=== PATIENT | male | born 1970 | race Caucasian/White ===

== ENCOUNTER 2019-06-11 13:25 | Observation (INO) ==
[2019-06-11 13:45] LABS: Basophils # 0.1 10*3/uL (0.0-0.2); Basophils % 0.6 % (0.0-0.8); Eosinophils # 0.3 10*3/uL (0.0-0.87); Eosinophils % 3.1 % (0.00-10.9); Hematocrit 45.6 VOL% (42.0-52.0); Hemoglobin 15.2 GM/DL (14.0-18.0); Immature Granulocytes % 0.5 %; Immature Granulocytes Absolute 0.04 #; Lymphocytes # 1.8 10*3/uL (1.4-4.0); Lymphocytes % 21.9 % (21.2-54.2); Mean Corpuscular HGB Conc 33.3 GM/DL (32-36); Mean Corpuscular Volume 80.3 FL (87-102); Mean Platelet Volume 12.4 FL (9.6-12.0); Monocytes % 8.9 % (1.7-12.7); Platelet Count 159 T/CUMM (130-400); Red Blood Count 5.68 MC/CUMM (3.8-5.5)
[2019-06-11] MEDS ORDERED: ENOXAPARIN 30 MG/0.3 ML SYRINGE SUBCUT STA (13:47)
[2019-06-11] MEDS ORDERED: ENOXAPARIN 100 MG/ML SYRINGE SUBCUT STA (13:52)
[2019-06-11 14:04] LABS: Albumin 3.6 G/DL (3.4-5.0); Bilirubin,Total 0.4 MG/DL (0.2-1.0); Calcium 8.4 MG/DL (8.5-10.1); Osmolality,Calculated 279.5 MOS/KG (273-304); Total Protein 7.1 G/DL (6.4-8.3)
[2019-06-11] MEDS ORDERED: ONDANSETRON 4 MG/2 ML VIAL ONE (14:24)
[2019-06-11] MEDS ORDERED: ONDANSETRON 4 MG/2 ML VIAL IV STA (14:28)
[2019-06-11] MEDS ORDERED: BISACODYL 5 MG TABLET PO PRN (15:57)
[2019-06-11] MEDS ORDERED: ZALEPLON 5 MG CAPSULE PO PRN (15:57)
[2019-06-11] MEDS ORDERED: diphenhydrAMINE CAP 25 MG CAPSULE PO PRN (15:57)
[2019-06-11] MEDS ORDERED: POTASSIUM CHLORIDE 20 MEQ TABLET PO PRN (15:57)
[2019-06-11] MEDS ORDERED: MAGNESIUM SULF RIDER 4 GM in PREMIX 1 EACH IV PRN (15:57)
[2019-06-11] MEDS ORDERED: ONDANSETRON 4 MG/2 ML VIAL IV PRN (15:57)
[2019-06-11] MEDS ORDERED: LACTULOSE 20 GM/30 ML UDCUP PO PRN (15:57)
[2019-06-11] MEDS ORDERED: MAGNESIUM SULF RIDER 2 GM in PREMIX 1 EACH IV PRN (15:57)
[2019-06-11] MEDS ORDERED: ACETAMINOPHEN 325 MG TABLET PO PRN (15:57)
[2019-06-11] MEDS ORDERED: guaiFENesin/DM ER 600-30 MG TABLET PO PRN (15:57)
[2019-06-11] MEDS ORDERED: MORPHINE 4 MG/1 ML VIAL IV PRN (15:57)
[2019-06-11 16:38] LABS: Troponin I < 0.015 NG/ML (0.00-0.045)
[2019-06-11] MEDS ORDERED: DEXTROSE 50% 25 GM/50 ML VIAL IV PRN (16:40)
[2019-06-11] MEDS ORDERED: GLUCAGON 1 MG VIAL IM PRN (16:40)
[2019-06-11 19:50] LABS: Troponin I < 0.015 NG/ML (0.00-0.045)
[2019-06-11] MEDS: carvediloL 6.25 MG TABLET PO SCH (20:28)
[2019-06-11] MEDS: INSULIN LISPRO 100 UNIT/ML SUBCUT SCH (20:30)
[2019-06-11] MEDS ORDERED: CETIRIZINE 10 MG TABLET PO SCH (21:00)
[2019-06-11] MEDS ORDERED: ATORVASTATIN 40 MG TABLET PO SCH (21:00)
[2019-06-11 22:00] LABS: Troponin I < 0.015 NG/ML (0.00-0.045)
[2019-06-12] MEDS ORDERED: ENOXAPARIN 100 MG/ML SYRINGE SUBCUT SCH (01:00)
[2019-06-12 04:53] LABS: Basophils # 0.1 10*3/uL (0.0-0.2); Basophils % 0.6 % (0.0-0.8); Eosinophils # 0.3 10*3/uL (0.0-0.87); Eosinophils % 4.1 % (0.00-10.9); Hematocrit 47.7 VOL% (42.0-52.0); Hemoglobin 15.7 GM/DL (14.0-18.0); Immature Granulocytes % 0.3 %; Immature Granulocytes Absolute 0.02 #; Lymphocytes # 2.7 10*3/uL (1.4-4.0); Lymphocytes % 34.4 % (21.2-54.2); Mean Corpuscular HGB Conc 32.9 GM/DL (32-36); Mean Corpuscular Volume 80.8 FL (87-102); Mean Platelet Volume 12.8 FL (9.6-12.0); Neutrophils % 52.6 % (38.7-73.9); Platelet Count 147 T/CUMM (130-400); Red Cell Distribution Width 13.1 % (9.3-17.3); White Blood Count 7.9 T/CUMM (4-12)
[2019-06-12 05:25] LABS: Calcium 8.7 MG/DL (8.5-10.1); Osmolality,Calculated 277.7 MOS/KG (273-304); Risk Ratio 3.6; Thyroid Stimulating Hormone 1.48 uIU/ml (0.358-3.74)
[2019-06-12 07:43] VITALS: BP 119/73
[2019-06-12] MEDS: INSULIN LISPRO 100 UNIT/ML SUBCUT SCH (08:28)
[2019-06-12] MEDS ORDERED: ASPIRIN EC 81 MG TABLET PO SCH (09:00)
[2019-06-12] MEDS ORDERED: PANTOPRAZOLE 40 MG TABLET PO SCH (09:00)
[2019-06-12] MEDS ORDERED: SERTRALINE 100 MG TABLET PO SCH (09:00)
[2019-06-12] MEDS ORDERED: PRASUGREL 10 MG TABLET PO SCH (09:00)
[2019-06-12] MEDS ORDERED: INSULIN NPH/REGULAR 70/30 100 UNIT/ML SUBCUT SCH (09:00)
[2019-06-12] MEDS ORDERED: OLMESARTAN 5 MG TABLET PO SCH (09:00)
[2019-06-12] MEDS ORDERED: ISOSORBIDE MONONITRATE 30 MG TABLET PO SCH (09:00)
[2019-06-12] MEDS: carvediloL 6.25 MG TABLET PO SCH (09:19)
[2019-06-12] MEDS ORDERED: INSULIN GLARGINE 100 UNIT/ML SUBCUT SCH (21:00)
== END 2019-06-12 10:38 | disposition home or self-care (01) ==
LOC: N.ED 13:25 → N.EDINP 13:25 → N.TELES 16:55
PROVIDERS: ADMIT Internal Medicine Cardiovascular Disease; ATTEND Internal Medicine Cardiovascular Disease

== ENCOUNTER 2020-09-21 11:19 | Observation (INO) ==
[2020-09-21 11:37] LABS: Basophils % 0.6 % (0.0-0.8); Eosinophils # 0.1 10*3/uL (0.0-0.87); Hematocrit 44.4 VOL% (42.0-52.0); Hemoglobin 15.1 GM/DL (14.0-18.0); Immature Granulocytes % 0.6 %; Immature Granulocytes Absolute 0.04 #; Lymphocytes # 1.2 10*3/uL (1.4-4.0); Lymphocytes % 17.3 % (21.2-54.2); Mean Corpuscular Volume 84.4 FL (87-102); Mean Platelet Volume 12.5 FL (9.6-12.0); Monocytes % 6.5 % (1.7-12.7); Platelet Count 141 T/CUMM (130-400); Red Blood Count 5.26 MC/CUMM (3.8-5.5); Red Cell Distribution Width 12.9 % (9.3-17.3); White Blood Count 6.9 T/CUMM (4-12)
[2020-09-21 12:01] LABS: Albumin 3.4 G/DL (3.4-5.0); Bilirubin,Total 0.5 MG/DL (0.2-1.0); Calcium 8.7 MG/DL (8.5-10.1); Osmolality,Calculated 287.2 MOS/KG (273-304); Potassium 4.5 MMOL/L (3.5-5.1); Total Protein 6.7 G/DL (6.4-8.2)
[2020-09-21] MEDS ORDERED: ASPIRIN CHEW 81 MG TABLET PO STA (12:12)
[2020-09-21] MEDS ORDERED: ENOXAPARIN 100 MG/ML SYRINGE SUBCUT STA (12:12)
[2020-09-21] MEDS ORDERED: NITROGLYCERIN 2% OINT 1 INCH/GM PACK TOP STA (12:12)
[2020-09-21] MEDS ORDERED: ASPIRIN 325 MG TABLET ONE (12:25)
[2020-09-21] MEDS ORDERED: ACETAMINOPHEN 500 MG TABLET ONE (13:28)
[2020-09-21] MEDS ORDERED: ACETAMINOPHEN 500 MG TABLET PO STA (13:31)
[2020-09-21 15:33] LABS: Thyroid Stimulating Hormone 0.881 uIU/ml (0.358-3.74)
[2020-09-21] MEDS ORDERED: MAGNESIUM SULF RIDER 4 GM in PREMIX 1 EACH IV PRN (15:37)
[2020-09-21] MEDS ORDERED: MAGNESIUM SULF RIDER 2 GM in PREMIX 1 EACH IV PRN ×2 (15:37→15:40)
[2020-09-21] MEDS ORDERED: ACETAMINOPHEN 325 MG TABLET PO PRN (15:39)
[2020-09-21] MEDS ORDERED: MORPHINE 4 MG/1 ML VIAL IV PRN (15:39)
[2020-09-21] MEDS ORDERED: ONDANSETRON 4 MG/2 ML VIAL IV PRN (15:39)
[2020-09-21] MEDS ORDERED: diphenhydrAMINE CAP 25 MG CAPSULE PO PRN (15:39)
[2020-09-21] MEDS ORDERED: POTASSIUM CHLORIDE RIDER 10 MEQ in PREMIX 1 EACH IV PRN (15:40)
[2020-09-21] MEDS ORDERED: SERTRALINE 100 MG TABLET PO ONE (15:44)
[2020-09-21] MEDS ORDERED: clonazePAM 0.5 MG TABLET PO ONE (15:45)
[2020-09-21] MEDS ORDERED: MAGNESIUM HYDROXIDE SUSP 30 ML UDCUP PO PRN (15:46)
[2020-09-21] MEDS ORDERED: GLUCAGON 1 MG VIAL IM PRN (16:36)
[2020-09-21] MEDS ORDERED: DEXTROSE 50% 25 GM/50 ML VIAL IV PRN (16:36)
[2020-09-21] MEDS: INSULIN NPH/REGULAR 70/30 100 UNIT/ML SUBCUT SCH (18:12)
[2020-09-21] MEDS: NITROGLYCERIN 2% OINT 1 INCH/GM PACK TOP SCH ×2 (18:23→23:50)
[2020-09-21] MEDS: carvediloL 6.25 MG TABLET PO SCH (18:23)
[2020-09-21] MEDS: ZALEPLON 5 MG CAPSULE PO PRN (20:47)
[2020-09-21] MEDS: clonazePAM 0.5 MG TABLET PO SCH (20:48)
[2020-09-21] MEDS: INSULIN GLARGINE 100 UNIT/ML SUBCUT SCH (20:48)
[2020-09-21] MEDS: GABAPENTIN 300 MG CAPSULE PO SCH (20:48)
[2020-09-21] MEDS: INSULIN REGULAR 100 UNIT/ML SUBCUT SCH (20:49)
[2020-09-22] MEDS ORDERED: ENOXAPARIN 100 MG/ML SYRINGE SUBCUT ONE (02:00)
[2020-09-22 05:11] LABS: Basophils % 0.3 % (0.0-0.8); Eosinophils # 0.2 10*3/uL (0.0-0.87); Eosinophils % 2.6 % (0.00-10.9); Hematocrit 43.5 VOL% (42.0-52.0); Hemoglobin 14.8 GM/DL (14.0-18.0); Immature Granulocytes % 0.3 %; Immature Granulocytes Absolute 0.02 #; Lymphocytes # 1.9 10*3/uL (1.4-4.0); Mean Corpuscular Volume 84.6 FL (87-102); Mean Platelet Volume 12.7 FL (9.6-12.0); Monocytes % 9.1 % (1.7-12.7); Neutrophils % 56.7 % (38.7-73.9); Platelet Count 145 T/CUMM (130-400); Red Blood Count 5.14 MC/CUMM (3.8-5.5); Red Cell Distribution Width 12.8 % (9.3-17.3); White Blood Count 6.1 T/CUMM (4-12)
[2020-09-22 05:34] LABS: Albumin 3.1 G/DL (3.4-5.0); Bilirubin,Total 0.5 MG/DL (0.2-1.0); Calcium 8.4 MG/DL (8.5-10.1); Potassium 3.7 MMOL/L (3.5-5.1); Risk Ratio 5.03; Total Protein 6.4 G/DL (6.4-8.2); VLDL CHOLESTEROL 107.6 MG/DL
[2020-09-22] MEDS: NITROGLYCERIN 2% OINT 1 INCH/GM PACK TOP SCH ×3 (05:54→17:19)
[2020-09-22] MEDS: INSULIN REGULAR 100 UNIT/ML SUBCUT SCH ×4 (08:20→20:33)
[2020-09-22] MEDS: OLMESARTAN 5 MG TABLET PO SCH (08:52)
[2020-09-22] MEDS: carvediloL 6.25 MG TABLET PO SCH ×2 (08:52→17:19)
[2020-09-22] MEDS: SODIUM CHLORIDE 0.45% 1,000 ML IV SCH ×2 (08:52→16:44)
[2020-09-22] MEDS: ASPIRIN EC 81 MG TABLET PO SCH (08:52)
[2020-09-22] MEDS: INSULIN NPH/REGULAR 70/30 100 UNIT/ML SUBCUT SCH ×2 (08:52→16:44)
[2020-09-22] MEDS: PRASUGREL 10 MG TABLET PO SCH (08:53)
[2020-09-22] MEDS: GABAPENTIN 300 MG CAPSULE PO SCH ×2 (09:07→20:31)
[2020-09-22] MEDS: PANTOPRAZOLE 40 MG TABLET PO SCH (09:07)
[2020-09-22] MEDS: MELOXICAM 7.5 MG TABLET PO SCH (09:07)
[2020-09-22] MEDS: clonazePAM 0.5 MG TABLET PO SCH ×2 (09:07→20:32)
[2020-09-22] MEDS: CHOLECALCIFEROL 5,000 UNIT TABLET PO SCH (09:07)
[2020-09-22] MEDS: ROSUVASTATIN 20 MG TABLET PO SCH (09:07)
[2020-09-22] MEDS: SERTRALINE 100 MG TABLET PO SCH (09:07)
[2020-09-22] MEDS ORDERED: diphenhydrAMINE CAP 50 MG CAPSULE PO ONE (13:30)
[2020-09-22] MEDS ORDERED: DIAZEPAM 5 MG TABLET PO ONE (13:30)
[2020-09-22] MEDS ORDERED: LIDOCAINE 1% 20 ML VIAL ONE (14:43)
[2020-09-22] MEDS ORDERED: NITROGLYCERIN DRIP 50 MG/250 ML BOTTLE IV ONE (14:44)
[2020-09-22] MEDS ORDERED: VERAPAMIL 5 MG/2 ML VIAL ONE (14:44)
[2020-09-22] MEDS ORDERED: HYDROmorphone 2 MG/1 ML VIAL ONE (14:44)
[2020-09-22] MEDS ORDERED: MIDAZOLAM 2 MG/2 ML VIAL ONE (14:44)
[2020-09-22] MEDS ORDERED: ENOXAPARIN 60 MG/0.6 ML SYRINGE ONE (15:04)
[2020-09-22] MEDS ORDERED: ENOXAPARIN 30 MG/0.3 ML SYRINGE ONE (15:25)
[2020-09-22] MEDS ORDERED: PRASUGREL 10 MG TABLET ONE (15:35)
[2020-09-22 17:26] LABS: Troponin I < 0.015 NG/ML (0.00-0.045)
[2020-09-22] MEDS: INSULIN GLARGINE 100 UNIT/ML SUBCUT SCH (20:32)
[2020-09-22] MEDS ORDERED: OMEGA 3 ACID ETHYL ESTERS 1 GM CAPSULE PO SCH (21:00)
[2020-09-22] MEDS: ZALEPLON 5 MG CAPSULE PO PRN (22:01)
[2020-09-22 23:07] VITALS: BP 128/72
[2020-09-23] MEDS: NITROGLYCERIN 2% OINT 1 INCH/GM PACK TOP SCH ×2 (01:04→05:27)
[2020-09-23 05:39] LABS: Basophils % 0.6 % (0.0-0.8); Eosinophils # 0.2 10*3/uL (0.0-0.87); Eosinophils % 3.4 % (0.00-10.9); Hematocrit 43.7 VOL% (42.0-52.0); Hemoglobin 14.5 GM/DL (14.0-18.0); Immature Granulocytes % 0.3 %; Immature Granulocytes Absolute 0.02 #; Lymphocytes # 1.4 10*3/uL (1.4-4.0); Lymphocytes % 23.1 % (21.2-54.2); Mean Corpuscular HGB Conc 33.2 GM/DL (32-36); Mean Corpuscular Volume 85.9 FL (87-102); Mean Platelet Volume 12.7 FL (9.6-12.0); Monocytes % 9.4 % (1.7-12.7); Neutrophils % 63.2 % (38.7-73.9); Platelet Count 136 T/CUMM (130-400); Red Blood Count 5.09 MC/CUMM (3.8-5.5); Red Cell Distribution Width 12.9 % (9.3-17.3); White Blood Count 6.2 T/CUMM (4-12)
[2020-09-23 05:47] LABS: Calcium 8.2 MG/DL (8.5-10.1); Osmolality,Calculated 281.7 MOS/KG (273-304); Potassium 3.5 MMOL/L (3.5-5.1)
[2020-09-23 05:53] LABS: Blood Urea Nitrogen 11 MG/DL (7-18); Calcium 8.2 MG/DL (8.5-10.1); Carbon Dioxide 20 MMOL/L (21-32); Estimated Glom Filtration Rate 132 ML/MIN; Glucose 240 MG/DL (74-106); Osmolality,Calculated 279.8 MOS/KG (273-304); Potassium 3.5 MMOL/L (3.5-5.1); Sodium 137 MMOL/L (136-145); Troponin I < 0.015 NG/ML (0.00-0.045)
[2020-09-23] MEDS: INSULIN REGULAR 100 UNIT/ML SUBCUT SCH (09:19)
[2020-09-23] MEDS: CHOLECALCIFEROL 5,000 UNIT TABLET PO SCH (09:38)
[2020-09-23] MEDS: OLMESARTAN 5 MG TABLET PO SCH (09:38)
[2020-09-23] MEDS: PRASUGREL 10 MG TABLET PO SCH (09:38)
[2020-09-23] MEDS: ROSUVASTATIN 20 MG TABLET PO SCH (09:38)
[2020-09-23] MEDS: MELOXICAM 7.5 MG TABLET PO SCH (09:38)
[2020-09-23] MEDS: SERTRALINE 100 MG TABLET PO SCH (09:38)
[2020-09-23] MEDS: GABAPENTIN 300 MG CAPSULE PO SCH (09:38)
[2020-09-23] MEDS: carvediloL 6.25 MG TABLET PO SCH (09:38)
[2020-09-23] MEDS: clonazePAM 0.5 MG TABLET PO SCH (09:39)
[2020-09-23] MEDS: ASPIRIN EC 81 MG TABLET PO SCH (09:39)
[2020-09-23] MEDS: INSULIN NPH/REGULAR 70/30 100 UNIT/ML SUBCUT SCH (09:39)
[2020-09-23] MEDS: PANTOPRAZOLE 40 MG TABLET PO SCH (09:40)
== END 2020-09-23 13:55 | disposition home or self-care (01) ==
LOC: N.ED 11:19 → N.EDINP 11:19 → N.TELES 16:45
PROVIDERS: ADMIT Internal Medicine Cardiovascular Disease; ATTEND Internal Medicine Cardiovascular Disease
PROC: CLCCHCL (ICD-10-PCS; 2020-09-22 14:45)

== ENCOUNTER 2020-10-06 07:20 | Observation (INO) ==
[2020-10-06] MEDS ORDERED: NITROGLYCERIN 2% OINT 1 INCH/GM PACK TOP STA (07:50)
[2020-10-06] MEDS ORDERED: ALUM/MAG/SIMETH/LIDO VISC 1:1 30 ML BOTTLE PO STA (07:50)
[2020-10-06] MEDS ORDERED: ASPIRIN 325 MG TABLET PO STA (07:50)
[2020-10-06 07:57] LABS: Basophils # 0.1 10*3/uL (0.0-0.2); Basophils % 1.1 % (0.0-0.8); Eosinophils # 0.2 10*3/uL (0.0-0.87); Eosinophils % 2.6 % (0.00-10.9); Hematocrit 46.6 VOL% (42.0-52.0); Hemoglobin 15.6 GM/DL (14.0-18.0); Immature Granulocytes % 0.6 %; Immature Granulocytes Absolute 0.04 #; Lymphocytes # 1.5 10*3/uL (1.4-4.0); Lymphocytes % 24.6 % (21.2-54.2); Mean Corpuscular HGB Conc 33.5 GM/DL (32-36); Mean Corpuscular Volume 84.3 FL (87-102); Mean Platelet Volume 12.1 FL (9.6-12.0); Neutrophils % 56.1 % (38.7-73.9); Platelet Count 141 T/CUMM (130-400); Red Blood Count 5.53 MC/CUMM (3.8-5.5); Red Cell Distribution Width 12.7 % (9.3-17.3); White Blood Count 6.2 T/CUMM (4-12)
[2020-10-06 08:20] LABS: Atypical Lymphocytes Few; Band Neutrophils 2 % (0-10); Eosinophils 1 % (0-10); Lymphocytes 30 % (20-55); Platelet Estimate Adequate; Segmented Neutrophils 56 % (50-85); Total Cells Counted 100
[2020-10-06 08:21] LABS: Bilirubin,Urine Negative (Negative); Blood, Urine Moderate mg/dL (Negative); Glucose,Urine (UA) >=500 mg/dL (Negative); Ketones,Urine Negative (Negative); Mucus,Urine Occasional /LPF (Occasional); Nitrite,Urine Negative (Negative); Protein,Urine Negative; RBC,Urine 5 /HPF (0-4); Urine Appearance CLEAR (Clear); Urine Color Yellow (Yellow); Urine Specific Gravity 1.016 (1.001-1.035); Urine Urobilinogen < 2.0 EU/DL (0.2-1.0); WBC,Urine 1 /HPF (0-6)
[2020-10-06 08:24] LABS: Albumin 3.7 G/DL (3.4-5.0); Bilirubin,Total 0.4 MG/DL (0.2-1.0); Calcium 8.8 MG/DL (8.5-10.1); Osmolality,Calculated 282.1 MOS/KG (273-304); Potassium 4.2 MMOL/L (3.5-5.1); Total Protein 7.1 G/DL (6.4-8.2)
[2020-10-06] MEDS ORDERED: ONDANSETRON 4 MG/2 ML VIAL ONE (09:40)
[2020-10-06] MEDS ORDERED: ONDANSETRON 4 MG/2 ML VIAL IV STA (09:44)
[2020-10-06 10:26] LABS: Barbiturates Screen,Urine Negative (Negative); Benzodiazepines Screen,Urine Negative (Negative); Cannabinoid Screen,Urine Negative (Negative); Opiate Screen,Urine Negative (Negative); Phencyclidine Screen,Urine Negative (Negative)
[2020-10-06] MEDS ORDERED: MORPHINE 4 MG/1 ML VIAL IV STA (11:20)
[2020-10-06] MEDS ORDERED: ENOXAPARIN 100 MG/ML SYRINGE SUBCUT ONE (12:45)
[2020-10-06] MEDS ORDERED: GLUCAGON 1 MG VIAL IM PRN (14:35)
[2020-10-06] MEDS ORDERED: DEXTROSE 50% 25 GM/50 ML VIAL IV PRN (14:35)
[2020-10-06] MEDS ORDERED: ALPRAZolam 0.25 MG TABLET PO PRN (14:42)
[2020-10-06] MEDS ORDERED: ALPRAZolam 0.25 MG TABLET PO ONE (14:43)
[2020-10-06] MEDS ORDERED: PNEUMOCOCCAL VACCINE (13 VALENT) 0.5 ML SYRINGE IM ONE (15:00)
[2020-10-06] MEDS: RANOLAZINE 500 MG TABLET PO SCH ×2 (15:56→21:26)
[2020-10-06] MEDS: INSULIN REGULAR 100 UNIT/ML SUBCUT SCH ×2 (15:57→21:33)
[2020-10-06] MEDS: INSULIN NPH/REGULAR 70/30 100 UNIT/ML SUBCUT SCH (17:52)
[2020-10-06] MEDS ORDERED: FUROSEMIDE 20 MG/2 ML VIAL IV ONE (19:30)
[2020-10-06] MEDS ORDERED: SERTRALINE 100 MG TABLET PO SCH (21:00)
[2020-10-06] MEDS ORDERED: INSULIN GLARGINE 100 UNIT/ML SUBCUT SCH (21:00)
[2020-10-06] MEDS: carvediloL 6.25 MG TABLET PO SCH (21:26)
[2020-10-06] MEDS: GABAPENTIN 300 MG CAPSULE PO SCH (21:26)
[2020-10-07] MEDS ORDERED: ACETAMINOPHEN 325 MG TABLET PO PRN (03:59)
[2020-10-07 05:23] LABS: Basophils # 0.1 10*3/uL (0.0-0.2); Eosinophils # 0.1 10*3/uL (0.0-0.87); Eosinophils % 1.7 % (0.00-10.9); Hematocrit 45.9 VOL% (42.0-52.0); Hemoglobin 15.5 GM/DL (14.0-18.0); Immature Granulocytes % 0.4 %; Immature Granulocytes Absolute 0.03 #; Lymphocytes # 1.7 10*3/uL (1.4-4.0); Lymphocytes % 23.1 % (21.2-54.2); Mean Corpuscular HGB Conc 33.8 GM/DL (32-36); Mean Corpuscular Volume 84.1 FL (87-102); Mean Platelet Volume 12.3 FL (9.6-12.0); Monocytes % 14.2 % (1.7-12.7); Neutrophils % 59.6 % (38.7-73.9); Platelet Count 124 T/CUMM (130-400); Red Blood Count 5.46 MC/CUMM (3.8-5.5); Red Cell Distribution Width 12.8 % (9.3-17.3); White Blood Count 7.3 T/CUMM (4-12)
[2020-10-07 05:47] LABS: Calcium 8.6 MG/DL (8.5-10.1); Osmolality,Calculated 270.2 MOS/KG (273-304); Potassium 3.4 MMOL/L (3.5-5.1)
[2020-10-07 05:48] LABS: Band Neutrophils 1 % (0-10); Eosinophils 4 % (0-10); Lymphocytes 22 % (20-55); Segmented Neutrophils 61 % (50-85); Total Cells Counted 100
[2020-10-07 05:49] LABS: Atypical Lymphocytes Few; Microcytosis 1+; Platelet Estimate Adequate
[2020-10-07 08:19] VITALS: BP 102/56
[2020-10-07] MEDS: GABAPENTIN 300 MG CAPSULE PO SCH (08:42)
[2020-10-07] MEDS: RANOLAZINE 500 MG TABLET PO SCH (08:42)
[2020-10-07] MEDS: carvediloL 6.25 MG TABLET PO SCH (08:42)
[2020-10-07] MEDS: INSULIN REGULAR 100 UNIT/ML SUBCUT SCH (08:45)
[2020-10-07] MEDS: INSULIN NPH/REGULAR 70/30 100 UNIT/ML SUBCUT SCH (08:45)
[2020-10-07] MEDS ORDERED: SERTRALINE 100 MG TABLET PO SCH ×2 (09:00)
[2020-10-07] MEDS ORDERED: ASPIRIN EC 81 MG TABLET PO SCH (09:00)
[2020-10-07] MEDS ORDERED: ROSUVASTATIN 20 MG TABLET PO SCH (09:00)
[2020-10-07] MEDS ORDERED: PRASUGREL 10 MG TABLET PO SCH (09:00)
[2020-10-07] MEDS ORDERED: OLMESARTAN 5 MG TABLET PO SCH (09:00)
[2020-10-07] MEDS ORDERED: MELOXICAM 7.5 MG TABLET PO SCH (09:00)
[2020-10-09] MEDS ORDERED: CHOLECALCIFEROL 5,000 UNIT TABLET PO SCH (09:00)
== END 2020-10-07 11:30 | disposition home or self-care (01) ==
LOC: N.ED 07:20 → N.EDINP 07:20 → N.TELES 13:40
PROVIDERS: ADMIT Internal Medicine Cardiovascular Disease; ATTEND Internal Medicine Cardiovascular Disease